=== PATIENT | female | born 1935 | race Caucasian/White ===

== ENCOUNTER 2018-12-31 08:53 | Day surgery (SDC) | payer OTHER ==
[2018-12-31] MEDS ORDERED: EPINEPHrine 1 MG INJ ×2 (09:42→11:41)
[2018-12-31] MEDS ORDERED: TETRACAINE 0.5% 4 ML OPH (09:42)
[2018-12-31] MEDS ORDERED: LIDOCAINE 1.5%/EPI MPF (SDV) 30 ML VIAL (09:42)
[2018-12-31] MEDS ORDERED: LIDOCAINE 1% (MPF) 10 ML INJ (09:42)
[2018-12-31] MEDS ORDERED: NA HYALURONATE/CHONDROITIN 0.5 ML SYG (09:42)
[2018-12-31] MEDS: ACETAMINOPHEN 500 MG TAB PO (10:26)
[2018-12-31] MEDS: TROPICAMIDE 1% 15 ML OPH OPER (10:27)
[2018-12-31] MEDS: TETRACAINE 0.5% 4 ML OPH OPER (10:27)
[2018-12-31] MEDS: PHENYLephrine 2.5% 15 ML OPH OPER (10:27)
[2018-12-31] MEDS: LIDOCAINE 4% (MPF) 5 ML INJ INJ ×2 (10:28→10:30)
[2018-12-31] MEDS ORDERED: ACETAZOLAMIDE 250 MG TAB PO (10:30)
[2018-12-31] MEDS ORDERED: NEOMYC/POLYMYX/DEXAM 3.5GM OPH OINT OPER (10:30)
[2018-12-31] MEDS ORDERED: BALANCED SALT SOLN OPH IRRIG 500 ML, EPINEPHrine 0.1 MG, GENTAMICIN 4 MG, VANCOMYCIN 10 MG IRR (10:30)
[2018-12-31] MEDS ORDERED: MIDAZOLAM 1 MG/ML 2 ML INJ (10:45)
[2018-12-31] MEDS ORDERED: ACETAMINOPHEN 325 MG TAB PO (12:00)
[2018-12-31] MEDS ORDERED: ONDANSETRON 4 MG INJ IV (12:00)
== END 2018-12-31 13:47 | disposition home or self-care (01) ==
LOC: SDS 08:53
DX: H25.9 Unspecified age-related cataract (principal); I10 Essential (primary) hypertension; E11.9 Type 2 diabetes mellitus without complications; Z88.0 Allergy status to penicillin
CPT/HCPCS: 66984; 82962